=== PATIENT | male | born 1965 | race Caucasian/White ===

== ENCOUNTER 2021-03-06 14:26 | Emergency (ER) | payer OTHER ==
[~2021-03-06] VITALS: Ht 167.6 cm; Wt 77.3 kg
[2021-03-06 14:38] VITALS: BP 126/76
[2021-03-06] MEDS ORDERED: ATOR40TA28 PO (14:48)
[2021-03-06] MEDS ORDERED: LOSA50TA37 PO (14:48)
[2021-03-06] MEDS ORDERED: LIDOCAINE 1% 10 ML VIAL SQ ONE (15:45)
[2021-03-06] MEDS ORDERED: BACITRACIN 0.9 GM PACKET OINTMENT TP ONE (15:45)
[2021-03-06] MEDS ORDERED: POVIDONE-IODINE 10% 15 ML SOLUTION UD TP ONE (15:45)
[2021-03-06] MEDS ORDERED: IBUPROFEN 800 MG TABLET PO ONE (16:45)
== END 2021-03-06 16:52 | disposition home or self-care (01) ==
LOC: EMS 14:33
DX: S41.112A Laceration without foreign body of left upper arm, initial encounter (principal); I10 Essential (primary) hypertension; W45.8XXA Other foreign body or object entering through skin, initial encounter; Y93.89 Activity, other specified; Y92.89 Other specified places as the place of occurrence of the external cause; Y99.0 Civilian activity done for income or pay
CPT/HCPCS: 12002; 99282; J3490; 99283

== ENCOUNTER 2021-03-08 16:35 | Emergency (ER) | payer OTHER ==
[~2021-03-08] VITALS: Ht 160 cm; Wt 90.5 kg
[~2021-03-08 16:35] MED LIST: ATOR40TA28 PO; LOSA50TA37 PO
[2021-03-08 16:39] VITALS: BP 134/76
== END 2021-03-08 17:40 | disposition home or self-care (01) ==
LOC: EMS 16:35
DX: S51.812D Laceration without foreign body of left forearm, subsequent encounter (principal); I10 Essential (primary) hypertension; X58.XXXD Exposure to other specified factors, subsequent encounter
CPT/HCPCS: 99281; Z7502

== ENCOUNTER 2021-03-16 14:12 | Emergency (ER) | payer OTHER ==
[~2021-03-16] VITALS: Ht 160 cm; Wt 90.5 kg
[2021-03-16] MEDS ORDERED: BACITRACIN 0.9 GM PACKET OINTMENT TP ONE (14:30)
[2021-03-16 14:31] VITALS: BP 122/68
== END 2021-03-16 14:35 | disposition home or self-care (01) ==
LOC: EMS 14:28
DX: S51.812D Laceration without foreign body of left forearm, subsequent encounter (principal); Z48.02 Encounter for removal of sutures; Z79.899 Other long term (current) drug therapy; W45.8XXD Other foreign body or object entering through skin, subsequent encounter
CPT/HCPCS: 99282; Z7502; Z7610